=== PATIENT | female | born 1965 | race Caucasian/White ===

== ENCOUNTER → 2021-03-18 15:22 | Outpatient (BNVA) | payer BC, SELFPAY | PROVIDERS: Family Provider General Practice; Referring Provider Family Medicine; Visit Provider Obstetrics & Gynecology | DX: Z12.4 Encounter for screening for malignant neoplasm of cervix (principal) | CPT/HCPCS: 87624 ==

== ENCOUNTER 2022-07-23 11:16 | Emergency (ER) | payer BC, SELFPAY ==
[2022-07-23 11:35] VITALS: BP 187/127; PULSE 76; TEMP 36.4; O2SAT 96; BMI 33.9
--- NOTE | 2022-07-23 11:45 | CTR_ITS ---
PROCEDURE INFORMATION: Exam: CT Head Without Contrast Exam date and time: 07/23/2022 11:51 AM Age: 56 years old Clinical indication: Pain; Headache; Additional info: Severe MALDONADO TECHNIQUE: Imaging protocol: Computed tomography of the head without contrast. Radiation optimization: All CT scans at this facility use at least one of these dose optimization techniques: automated exposure control; mA and/or kV adjustment per patient size (includes targeted exams where dose is matched to clinical indication); or iterative reconstruction. REPORTING DATA: Count of CT and Cardiac NM exams in prior 12 months: This patient has received 0 known CTs and 0 known cardiac nuclear medicine studies in the 12 months prior to the current study. COMPARISON: No relevant prior studies available. RADIATION DOSE METRICS: Total DLP (mGy-cm): 1125.72 FINDINGS: Brain: Normal. No hemorrhage. No space-occupying masses or areas of mass effect. No edema or midline shift. There is prominence of the ventral subarachnoid spaces adjacent to the frontal lobes likely secondary to cortical atrophy. Cerebral ventricles: No ventriculomegaly. Paranasal sinuses: Visualized sinuses are unremarkable. No fluid levels. Mastoid air cells: Visualized mastoid air cells are well aerated. Bones/joints: Unremarkable. Soft tissues: Unremarkable. CT/CT head wo con* [id number] IMPRESSION: Negative CT examination of the head. No acute intracranial abnormalities.
--- NOTE | 2022-07-23 12:19 | CTR_ITS ---
PROCEDURE INFORMATION: Exam: CTA Head Without And With Contrast, Arteriography Exam date and time: 07/23/2022 1:45 PM Age: 56 years old Clinical indication: Headache; Additional info: Severe MALDONADO TECHNIQUE: Imaging protocol: Computed tomographic angiography of the head without and with contrast. Exam focused on the arteries. 3D rendering (Not supervised by radiologist): MIP and/or 3D reconstructed images were created by the technologist. Radiation optimization: All CT scans at this facility use at least one of these dose optimization techniques: automated exposure control; mA and/or kV adjustment per patient size (includes targeted exams where dose is matched to clinical indication); or iterative reconstruction. Contrast material: OMNI 350; Contrast volume: 100 ml; Contrast route: INTRAVENOUS (IV); REPORTING DATA: Count of CT and Cardiac NM exams in prior 12 months: This patient has received 0 known CTs and 0 known cardiac nuclear medicine studies in the 12 months prior to the current study. COMPARISON: CT head wo con* [id number] 07/23/2022 11:51 AM RADIATION DOSE METRICS: Total DLP (mGy-cm): 1008 FINDINGS: ANTERIOR CIRCULATION: Right internal carotid artery: Intracranial segment is patent with no significant stenosis or occlusion. No aneurysm. Right middle cerebral artery: No occlusion or significant stenosis. No aneurysm. Right anterior cerebral artery: No occlusion or significant stenosis. No aneurysm. Left internal carotid artery: Intracranial segment is patent with no significant stenosis. No aneurysm. Left middle cerebral artery: No occlusion or significant stenosis. No aneurysm. Left anterior cerebral artery: No occlusion or significant stenosis. No aneurysm. POSTERIOR CIRCULATION: Right vertebral artery: No occlusion or significant stenosis. No aneurysm. Left vertebral artery: No occlusion or significant stenosis. No aneurysm. Basilar artery: No occlusion or significant stenosis. No aneurysm. Right posterior cerebral artery: No occlusion or significant stenosis. No aneurysm. Left posterior cerebral artery: No occlusion or significant stenosis. No aneurysm. HEAD: Brain: Normal. No hemorrhage. Unremarkable white matter. No mass effect. Cerebral ventricles: Normal. No ventriculomegaly. Bones/joints: Unremarkable. No acute fracture. Paranasal sinuses: Visualized sinuses are normal. No fluid levels. Mastoid air cells: Visualized mastoids are normal. No mastoid effusion. Soft tissues: Unremarkable. PROCEDURE INFORMATION: Exam: CTA Neck Without And With Contrast Exam date and time: 07/23/2022 1:45 PM Age: 56 years old Clinical indication: Headache; Additional info: Severe MALDONADO TECHNIQUE: Imaging protocol: Computed tomographic angiography of the neck without and with contrast. 3D rendering (Not supervised by radiologist): MIP and/or 3D reconstructed images were created by the technologist. Radiation optimization: All CT scans at this facility use at least one of these dose optimization techniques: automated exposure control; mA and/or kV adjustment per patient size (includes targeted exams where dose is matched to clinical indication); or iterative reconstruction. Contrast material: OMNI 350; Contrast volume: 100 ml; Contrast route: INTRAVENOUS (IV); REPORTING DATA: Count of CT and Cardiac NM exams in prior 12 months: This patient has received 0 known CTs and 0 known cardiac nuclear medicine studies in the 12 months prior to the current study. COMPARISON: CT head wo con* [id number] 07/23/2022 11:51 AM RADIATION DOSE METRICS: Total DLP (mGy-cm): 1008 FINDINGS: Right common carotid artery: No stenosis. No dissection or occlusion. Right internal carotid artery: No stenosis of the extracranial segment. No dissection or occlusion. Right external carotid artery: No occlusion or stenosis of the origin. Left common carotid artery: No stenosis. No dissection or occlusion. Left internal carotid artery: No stenosis of the extracranial segment. No dissection or occlusion. Left external carotid artery: No occlusion or stenosis of the origin. Right vertebral artery: No stenosis. No dissection or occlusion. Left vertebral artery: No stenosis. No dissection or occlusion. Soft tissues: Normal. No significant soft tissue swelling. Bones/joints: No acute fracture. CT/CT angio headneck* [id number] IMPRESSION: No large vessel occlusion. No aneurysm detected. Unremarkable CT head. IMPRESSION: No stenosis or occlusion. REFERENCES: NASCET CRITERIA. The degree of stenosis in the cervical segment of the internal carotid artery is based on NASCET criteria. Normal is no stenosis. Mild is less than 50% stenosis. Moderate is 50-69% stenosis. Severe is 70% to 99% stenosis. Total occlusion is no detectable patent lumen.
[2022-07-23] MEDS: diphenhydrAMINE 50 mg/mL SDV 1mL IVP (12:49)
[2022-07-23] MEDS: dexamethasone 10 mg/mL INJ 8 MG IV (12:50)
[2022-07-23] MEDS: ondansetron 2 mg/ML SDV 2 mL 4 MG IVP (12:51)
[2022-07-23] MEDS: enalaprilat 1.25 mg/mL Inj 0.625 MG IVP (12:53)
--- NOTE | 2022-07-23 12:55 | ED_ITS ---
HPI - Headache General: Chief Complaint: Headache Stated Complaint: headache with vision problems Time Seen by Provider: 07/23/22 11:46 Source: patient Mode of arrival: ambulatory Limitations: no limitations History of Present Illness: Patient is a 56-year-old female presents to ED today along with her for evaluation of a headache. She states headache started yesterday fairly gradually but then worsened. She states she was able to go home rest/take a nap and felt like her headache slightly improved following that. She states when she woke up this morning she could still feel the headache and became concerned when it abruptly got much worse. She states the headache is located to her right frontal/temporal/retro-orbital region. She states when the headache first started she did notice some blurry vision to the right eye but this has improved. He does report sensitivity to light and sound. Feels nauseous but has not had any episodes of vomiting. She has no history of headaches or migraines. She has no neck pain, neck stiffness, or fevers. Denies any facial drooping, trouble with word finding, trouble with ambulation/balance/gait, no numbness/tingling/weakness to her arms or legs. Patient states her blood pressure upon arrival to the ED was significantly elevated at 187/127. She states blood pressure is usually normal. MD elicited complaint: headache Onset (ago): day(s) (starting yesterday) Onset description: gradually Location: right, frontal, temporal and retro-orbital Severity: severe Pain scale (0-10): 10 Quality & Timing: sharp and constant Exacerbating factors: light and noise Relieving factors: nothing Associated symptoms: Reports no associated symptoms; Deny chest pain, confusion, fever(s), lightheadedness, malaise, nausea, rash, syncope or vomiting Treatments prior to arrival: none Review of Systems Const: Denies: fever(s), chills, body aches, fatigue or malaise Eyes: Reports: blurry vision (improved upon arrival to ED) and photophobia; Denies: change in vision, blind spots, floaters or seeing flashes ENMT: Denies: ear or mastoid pain, change in hearing, tinnitus, disequilibrium, nasal discharge or nasal congestion Card: Denies: chest pain, palpitations, irregular heart rhythm, lightheadedness, syncope or dyspnea on exertion Resp: Denies: dyspnea, productive cough or pain on inspiration GI: Denies: abdominal pain, nausea, vomiting or diarrhea : Denies: flank pain or dysuria Musc: Denies: neck pain, back pain, extremity pain, extremity swelling or joint pain Skin/Breast: Denies: rash Neuro: Reports: headache(s); Denies: numbness in extremities, weakness in extremities, sensory changes, lack of coordination, difficulty walking, frequent falls, dizziness, vertigo, confusion, behavioral changes, Slurred speech present, difficulty communicating thoughts or seizure-like activity PFSH ED PFSH: Medical History No pertinent past medical history Denies asthma, seizures, DVT/PE PCP: Dr. Edwards Surgical History History of laparotomy 1991---surgery on right fallopian tube for an ectopic . Started out laparoscopic however needed a Pfannenstiel incision because of bleeding and scar tissue. S/P section Performed in 1998 Family History Sister Diabetes Heart disease Hypertension Thyroid condition Father Diabetes Hypertension Grandmother Diabetes paternal Denies family history of Colon cancer Ovarian cancer Hyperlipidemia Breast cancer Uterine cancer Stroke Physical Exam Const: COMMON NORMALS: no acute distress, average body habitus, patient oriented x3, no limitations, healthy appearing, alert and well nourished GENERAL APPEARANCE: cooperative ORIENTATION/CONSCIOUSNESS: Yes awake, Yes oriented to person, Yes oriented to place and Yes oriented to time HENMT: COMMON NORMALS: normocephalic and atraumatic HEAD & SCALP: normal to inspection, normocephalic and atraumatic FACE & SINUS: normal facial exam and sinuses nontender MOUTH: tongue normal Eye: COMMON NORMALS: Equal, round and reactive pupils present, EOMs intact bilaterally, conjunctivae normal and no papilledema GENERAL EYE: appearance normal, both eyes and all related structures and normal light reflex VISUAL ACUITY: Yes acuity normal VISUAL GIPSON: No peripheral vision loss and No central vision loss ALIGNMENT: Yes alignment normal CONJUNCTIVA: Yes conjunctivae normal PUPIL: Yes Equal, round and reactive pupils present and Yes Pupil accommodation reflex normal DIRECT OPHTHALMOSCOPY: Yes normal light reflex and Yes no papilledema Neck/C-Spine: COMMON NORMALS: full ROM, no lymphadenopathy, supple and no meningeal signs Resp: COMMON NORMALS: normal respiratory effort and clear to auscultation bilaterally AUSCULTATION: clear to auscultation bilaterally Cardio: COMMON NORMALS: regular rate and regular rhythm RATE: regular rate RHYTHM: regular rhythm GI: COMMON NORMALS: Normal to inspection, nondistended, normoactive bowel sounds present, Soft to palpation, non-tender, No hepatosplenomegaly present and no masses PALPATION: Yes Soft to palpation and Yes No hepatosplenomegaly present : COMMON NORMALS: Yes no CVA tenderness BLADDER/KIDNEY EXAM: Yes no CVA tenderness Back/Pelvis: COMMON NORMALS: no CVA tenderness and thoracic and lumbar spine normal to inspection Extremity: COMMON NORMALS: normal to inspection GENERAL: Yes normal exam except as noted Neuro: NE COMA SCALE: document GCS findings [place] coma scale eye opening: Spontaneous [place] coma scale verbal response: Orientated Ne coma scale motor response: Obey commands Ne coma scale total score: 15 COMMON NORMALS: patient oriented x3, CN's II-XII intact bilaterally, moves all extremities, no focal motor deficits, no sensory deficits noted and gait normal SENSORIUM/ORIENTATION: Yes alert, Yes oriented to person, Yes oriented to place and Yes oriented to time MENINGEAL SIGNS: Yes no meningeal signs CRANIAL NERVES: Yes CN normal except as noted SPEECH: speech normal MOTOR EXAM: 5/5 motor strength present throughout Skin: COMMON NORMALS: no rashes or lesions noted GENERAL SKIN EXAM: no rashes or lesions noted Course Vital Signs: Vital signs: Vital Signs Temperature 97.6 F 07/23/22 11:35 Pulse Rate 68 07/23/22 15:15 Blood Pressure 153/96 07/23/22 15:15 Pulse Oximetry 97 07/23/22 15:15 Oxygen Delivery Me thod Room Air 07/23/22 14:17 MDM - Headache Medical Decision Making Patient's headache is much improved upon re-examination. She has absolutely no neurologic complaints or deficits at this time. CT/CTA negative. Patient is requesting something to take at home should the headache return. We will write her for an oral prescription for Imitrex. Patient was hypertensive upon arrival. This has vastly improved as well and BP upon reexamination was 136/86. Her blood work including ESR is unremarkable. Strict return to ED precautions given. I would like her to follow-up with primary care as soon as possible. Lab Data 07/23/22 12:40 07/23/22 12:[address] 07/23/22 11:45 IMPRESSION: Negative CT examination of the head. No acute intracranial abnormalities. Head/Neck CTA 07/23/22 12:19 IMPRESSION: No large vessel occlusion. No aneurysm detected. Unremarkable CT head. IMPRESSION: No stenosis or occlusion. REFERENCES: NASCET CRITERIA. The degree of stenosis in the cervical segment of the internal carotid artery is based on NASCET criteria. Normal is no stenosis. Mild is less than 50% stenosis. Moderate is 50-69% stenosis. Severe is 70% to 99% stenosis. Total occlusion is no detectable patent lumen. Laboratory Results WBC 7.2 10^3/uL (4.0-10.0) 07/23/22 12:40 RBC 5.18 10^6/uL (4.1-5.3) 07/23/22 12:40 Hgb 14.8 g/dL (11.5-15.3) 07/23/22 12:40 Hct 45.0 % (37.0-47.0) 07/23/22 12:40 MCV 86.9 fl (81-99) 07/23/22 12:40 MCH 28.6 pg (28.0-34.0) 07/23/22 12:40 MCHC 32.9 g/dL (30.0-36.0) 07/23/22 12:40 RDW 13.1 % (12.1-15.1) 07/23/22 12:40 Plt Count 267 10^3/cmm (130-400) 07/23/22 12:40 MPV 10.1 fL (7.4-10.4) 07/23/22 12:40 Neut % (Auto) 72.3 % 07/23/22 12:40 Lymph % (Auto) 20.9 % 07/23/22 12:40 [place] % (Auto) 4.8 % 07/23/22 12:40 Eos % (Auto) 1.1 % 07/23/22 12:40 Baso % (Auto) 0.6 % 07/23/22 12:40 Neut # (Auto) 5.22 10^3/uL (1.8-7.7) 07/23/22 12:40 Lymph # (Auto) 1.5 10^3/uL (0.8-4.8) 07/23/22 12:40 [place] # (Auto) 0.4 10^3/uL (0.2-0.9) 07/23/22 12:40 Eos # (Auto) 0.1 10^3/uL (0.0-0.8) 07/23/22 12:40 Baso # (Auto) 0.0 10^3/uL (0.0-0.1) 07/23/22 12:40 Nucleated RBC % (auto) 0 % 07/23/22 12:40 Nucleated RBCs # 0.0 /100WBC 07/23/22 12:40 ESR 2 mm/hr (0-15) 07/23/22 12:40 Sodium 139 mmol/L (136-145) 07/23/22 12:40 Potassium 3.8 mmol/L (3.5-5.1) 07/23/22 12:40 Chloride 103 mmol/L (98-107) 07/23/22 12:40 Carbon Dioxide 25 mmol/L (22-29) 07/23/22 12:40 Anion Gap 14.8 (5-19) 07/23/22 12:40 BUN 19 mg/dL (6-20) 07/23/22 12:40 Creatinine 0.7 mg/dL (0.5-0.9) 07/23/22 12:40 GFR Calculation 87.2 mL/min (90-130) L 07/23/22 12:40 Glucose 121 mg/dL (65-115) H 07/23/22 12:40 Calculated Osmolality 292 mOsm/kg (285-295) 07/23/22 12:40 Calcium 9.6 mg/dL (8.5-10.5) 07/23/22 12:40 Total Bilirubin 0.3 mg/dL (0.15-1.2) 07/23/22 12:40 AST 22 U/L (0-32) 07/23/22 12:40 ALT 41 U/L (0-33) H 07/23/22 12:40 Alkaline Phosphatase 68 U/L (35-105) 07/23/22 12:40 Total Protein 7.3 g/dL (6.6-8.7) 07/23/22 12:40 Albumin 4.7 g/dL (3.5-5.2) 07/23/22 12:40 Globulin 2.6 g/dL (1.3-4.6) 07/23/22 12:40 Discharge Plan Discharge Patient Disposition: Home Clinical Impression: Headache Qualifiers: Headache type: unspecified Headache chronicity pattern: acute headache Intractability: not intractable Qualified Code(s): R51.9 - Headache, unspecified Condition: Stable Prescriptions: New sumatriptan succinate 50 mg tablet 50 mg PO Q2H PRN (Reason: migraine headache) Qty: 10 0RF Rx Instructions: Take one tab at onset of headache. May repeat dose after 2h. Do not exceed 4 doses per 24 hrs Discharge Orders: Discharge ED (Routine); Ordered 07/23/22 Ordered By: Laura Anderson Patient Instructions: Acute Headache (DC) Activity Restrictions/Additional Instructions: As we discussed you have been given a prescription in case it returns. If headache is refractory to prescription medications and is severe you need to return to the emergency department for further evaluation. You need to return sooner for severe neck pain/stiffness, fevers greater than 100.4, loss of vision, facial drooping, trouble speaking, trouble walking/problems with gait or balance, numbness/tingling/loss of sensation to your arms or legs,, or any other concerns you may have. Please follow up with primary care as soon as possible. I hope you begin to feel better soon. Coding Level of Care Code ED Lasting Room Supervisor for Roman Wagoner
[2022-07-23 12:56] LABS: Basophils % 0.6 %; Eosinophils # 0.1 10^3/uL (0.0-0.8); Eosinophils % 1.1 %; Hemoglobin 14.8 g/dL (11.5-15.3); Lymphocytes # 1.5 10^3/uL (0.8-4.8); Lymphocytes % 20.9 %; Mean Corpuscular HGB Conc 32.9 g/dL (30.0-36.0); Mean Corpuscular Hemoglobin 28.6 pg (28.0-34.0); Mean Corpuscular Volume 86.9 fl (81-99); Mean Platelet Volume 10.1 fL (7.4-10.4); Monocytes # 0.4 10^3/uL (0.2-0.9); Monocytes % 4.8 %; Neutrophils # 5.22 10^3/uL (1.8-7.7); Neutrophils % 72.3 %; Nucleated Red Blood Cells % 0 %; Platelet Count 267 10^3/cmm (130-400); Red Blood Count 5.18 10^6/uL (4.1-5.3); Red Cell Distribution Width 13.1 % (12.1-15.1); White Blood Count 7.2 10^3/uL (4.0-10.0)
[2022-07-23 12:59] LABS: Erythrocyte Sedimentation Rate 2 mm/hr (0-15)
[2022-07-23 13:14] LABS: Alanine Aminotransferase 41 U/L (0-33); Albumin Level 4.7 g/dL (3.5-5.2); Alkaline Phosphatase 68 U/L (35-105); Anion Gap 14.8 (5-19); Aspartate Amino Transferase 22 U/L (0-32); Blood Urea Nitrogen 19 mg/dL (6-20); Calcium 9.6 mg/dL (8.5-10.5); Carbon Dioxide 25 mmol/L (22-29); Chloride 103 mmol/L (98-107); Globulin 2.6 g/dL (1.3-4.6); Glomerular Filtration Rate 87.2 mL/min (90-130); Glucose 121 mg/dL (65-115); Osmolality Calculated 292 mOsm/kg (285-295); Potassium 3.8 mmol/L (3.5-5.1); Sodium 139 mmol/L (136-145); Total Bilirubin 0.3 mg/dL (0.15-1.2); Total Protein 7.3 g/dL (6.6-8.7)
[2022-07-23] MEDS: morphine 4 mg/mL SDV 1 mL IVP (14:15)
[2022-07-23 14:17] VITALS: BP 136/86; PULSE 67; O2SAT 99
[2022-07-23] MEDS: ketorolac 30 mg/mL INJ IVP (15:13)
[2022-07-23 15:15] VITALS: BP 153/96; PULSE 68; O2SAT 97
--- NOTE | 2022-07-25 15:10 | DCPLANNER ---
manager french called patient due to no primary care physician - no answer at this time.
== END 2022-07-23 15:23 | disposition home or self-care (01) ==
PROVIDERS: Emergency Provider Physician Assistant
DX: R51.9 Headache, unspecified (principal)
CPT/HCPCS: 70450; 70496; 70498; 80053; 85025; 85651; 96374; 96375; 99285; J1100; J1200; J1885; J2270; J2405; J3490; Q9967